=== PATIENT | female | born 1990 | race Caucasian/White ===

== ENCOUNTER 2017-06-28 13:31 | Day surgery (SDC) | payer OTHER ==
[~2017-06-28] VITALS: Ht 188 cm; Wt 106.5 kg
[2017-06-28] VITALS (8 sets, daily range): BP systolic 118–135; BP diastolic 56–81; PULSE 90–109; RESP 14–20; Ht 188 cm; Wt 106.5 kg
[2017-06-28] MEDS ORDERED: FOLI-49 PO (14:10)
[2017-06-28] MEDS ORDERED: MONT10TA24 PO (14:11)
[2017-06-28] MEDS ORDERED: SERT-165 PO (14:11)
[2017-06-28] MEDS ORDERED: LORA10TA3 PO (14:11)
[2017-06-28] MEDS ORDERED: FLUT9.9S NASAL (14:12)
[2017-06-28] MEDS ORDERED: AZEL137S9 NASAL (14:13)
[2017-06-28] MEDS ORDERED: TOPI50TA86 PO (14:14)
[2017-06-28] MEDS ORDERED: ROCURONIUM 50 MG INJ ONE (15:25)
[2017-06-28] MEDS ORDERED: PROPOFOL 20 ML ONE (15:25)
[2017-06-28] MEDS ORDERED: FENTAnyl 50 MCG/ML VIAL ONE (15:25)
[2017-06-28] MEDS ORDERED: CEFAZOLIN 1 GM INJ ONE (15:25)
[2017-06-28] MEDS ORDERED: MIDAZOLAM 1 MG/ML 2 ML INJ ONE (15:25)
[2017-06-28] MEDS ORDERED: LIDOCAINE 2%/EPI 30 ML INJ ONE (15:37)
[2017-06-28] MEDS ORDERED: COCAINE 4% 4 ML TOP ONE (15:37)
[2017-06-28] MEDS ORDERED: BACITRACIN/POLYMYXIN 28.35 GM OINT TOP ONE (15:38)
--- NOTE | 2017-06-28 16:03 | HPN ---
Date/Time of Note Date/Time of Note DATE: 06/28/17 TIME: 16:02 Interval H&P Admission Note Pt. seen H&P reviewed: No system changes RICK FORD MD Jun 28, 2017 16:02
[2017-06-28] MEDS ORDERED: METOCLOPRAMIDE 10 MG INJ ONE (16:20)
[2017-06-28] MEDS ORDERED: KETOROLAC 30 MG INJ ONE (16:20)
[2017-06-28] MEDS ORDERED: ONDANSETRON 4 MG INJ ONE (16:20)
[2017-06-28] MEDS ORDERED: DEXAMETHASONE 4 MG/ML 1 ML INJ ONE (16:21)
[2017-06-28] MEDS ORDERED: SUGAMMADEX SODIUM 200 MG/2 ML VIAL IV ONE (16:21)
[2017-06-28] MEDS ORDERED: FENTAnyl 50 MCG/ML VIAL IV PRN ×2 (16:30)
[2017-06-28] MEDS ORDERED: HYDROmorphONE (0.2 MG/ML) 10ML SYG IV PRN ×3 (16:30)
[2017-06-28] MEDS ORDERED: ONDANSETRON 4 MG INJ IV PRN (16:30)
[2017-06-28] MEDS ORDERED: LABETALOL HCL 20MG INJ IV PRN (16:30)
[2017-06-28] MEDS ORDERED: DIPHENHYDRAMINE 50 MG INJ IV PRN (16:30)
[2017-06-28] MEDS ORDERED: hydrALAzine 20 MG INJ IV PRN (16:30)
--- NOTE | 2017-06-28 16:50 | OPR ---
Date/Time of Note Date/Time of Note DATE: 06/28/17 TIME: 16:48 Operative Report Procedure Date: Jun 28, 2017 Preoperative Diagnosis Nasal congestion. Deviated nasal septum. ITH. Postoperative Diagnosis Same Operation Performed Septoplasty, submucous resection of inferior turbinates. Surgeon: RICK FORD MD Anesthesia Type: general Estimated Blood Loss: minimal Transfusion Required: no Specimen: none Grafts/Implants: none Complications: no Pt Condition Post Procedure: stable Disposition: PACU Indications Nasal congestion unresponsive to medical management. Operative\Procedure Findings DNS right. ITH left greater. Procedure Description Description of procedure: The patient was identified in the holding area. We had a discussion to confirm understanding of all indications risks benefits alternatives and postoperative care associated with the operation. The patient signed informed consent was taken to the operating room. The patient was laid supine on the operating room table and general anesthesia was achieved without difficulty. The face was draped in sterile fashion and the nose was packed with 4% cocaine pledgets. The nasal septum was infiltrated with 5 cc of 1% lidocaine with epinephrine in the submucoperiosteal plane bilaterally. A right sided Vamo incision was made and submucoperichondreal flaps were raised. The bony cartilaginous junction of the septum was identified and entered. A deviated segments of bone and cartilage were isolated. A double- action scissor was used to transect the bony deviated segment of the skull base after which a Angy forcep was used to resect deviated segment of bone and cartilage. Care was taken to avoid excess cartilaginous resection. The flaps were returned to normal position and anterior rhinoscopy reveals midline septum. At this point the right inferior turbinate was medialized with a Macdoel elevator. The Coblation wand on a setting of 6 was used to enter the turbinate in the inferior medial submucosal compartment. 10 seconds of Coblation were performed at the 3rd 2nd and 1st gallo after which the turbinate was crushed laterally into the lateral nasal wall with a Florez elevator. The contralateral turbinate was addressed in similar fashion to complete the bilateral submucous resection and lateral fracturing of the inferior turbinates. Septal flaps were secured with a 40 fast-absorbing gut whip stitch. A Merocel pack was placed on each side. The patient was awakened, extubated and taken to the PACU in stable condition. Complications: None. RICK FORD MD Jun 28, 2017 16:50
[2017-06-28] MEDS ORDERED: HYDROCODONE/APAP (5/325) TAB PO PRN (17:00)
== END 2017-06-28 18:09 | disposition home or self-care (01) ==
LOC: SUR 13:31 → SDS 13:36 → SUR 18:09
PROVIDERS: ATTEND Otolaryngology
DX: J34.2 Deviated nasal septum (principal)
CPT/HCPCS: 30140; 30520; J0690; J1100; J1885; J2250; J2405; J2765; J3010; Z7512; Z7610